=== PATIENT | male | born 1945 | race Caucasian/White ===

== ENCOUNTER → 2019-06-06 | Outpatient (CLI) | payer MEDICARE, OTHER | LOC: M.CT 06:51 | DX: K80.20 Calculus of gallbladder without cholecystitis without obstruction (principal); K86.1 Other chronic pancreatitis; N28.1 Cyst of kidney, acquired; K57.30 Diverticulosis of large intestine without perforation or abscess without bleeding; M47.815 Spondylosis without myelopathy or radiculopathy, thoracolumbar region ==

== ENCOUNTER → 2019-07-06 | Outpatient (CLI) | payer MEDICARE, OTHER | LOC: M.ULTRA 07:28 | DX: K76.0 Fatty (change of) liver, not elsewhere classified (principal); R16.0 Hepatomegaly, not elsewhere classified; N28.1 Cyst of kidney, acquired ==

== ENCOUNTER → 2020-04-04 | Outpatient (CLI) | payer MEDICARE, OTHER | LOC: M.RAD 10:13 | PROVIDERS: ATTEND Internal Medicine | DX: R05 Cough (principal); R06.02 Shortness of breath ==

== ENCOUNTER 2020-05-25 11:56 | Inpatient (IN) | payer MEDICARE, OTHER ==
[~2020-05-25] VITALS: Ht 175.3 cm; Wt 75.3 kg
[2020-05-25 12:00] VITALS: BP 126/67
[2020-05-25] MEDS ORDERED: NORVASC10 MG PO (12:10)
[2020-05-25] MEDS ORDERED: PROAIR HFA8.5 GM INH (12:10)
[2020-05-25] MEDS ORDERED: ASA81BEC PO (12:11)
[2020-05-25] MEDS ORDERED: ZYRTEC 10 MG TA10 MG PO (12:11)
[2020-05-25] MEDS ORDERED: COQ-1030 MG PO (12:11)
[2020-05-25] MEDS ORDERED: VITAMIN D325 MC1 PO (12:11)
[2020-05-25] MEDS ORDERED: ZOCOR80 MG PO (12:12)
[2020-05-25] MEDS ORDERED: HYDROCHLOROTHIA25 M2 PO (12:12)
[2020-05-25] MEDS ORDERED: AVAPRO300 MG PO (12:12)
[2020-05-25] MEDS ORDERED: METFORMIN HCL500 M3 PO (12:12)
[2020-05-25] MEDS ORDERED: NEXIUM 40 MG CA40 M1 PO (12:12)
[2020-05-25 12:54] LABS: ABSOLUTE LYMPHOCYTES 0.7 thou/uL (0.8-5.3); ABSOLUTE MONOCYTES 0.5 thou/uL (0.0-1.2); ABSOLUTE NEUTROPHILS 6.2 thou/uL (1.6-8.1); BASOPHILS 0.2 %; EOSINOPHILS 0.1 %; HEMATOCRIT 42.7 % (42.0-52.0); HEMOGLOBIN 14.5 gm/dL (14.0-18.0); LYMPHOCYTES 10.1 %; MCH 28.8 pg (26.0-34.0); MCHC 33.9 g/dL (28.0-37.0); MONOCYTES 6.6 %; MPV 7.6 fl. (7.2-11.1); NUCLEATED RBCS 0 /100WBC; PLATELET COUNT* 218 thou/uL (150-400); RBC 5.02 mil/uL (4.50-6.00); RDW-CV 14.2 % (10.5-14.5); WBC 7.4 thou/uL (4.0-11.0)
[2020-05-25 13:03] LABS: CALCIUM 8.3 mg/dL (8.5-10.1); CREATININE 1.8 mg/dL (0.6-1.3)
[2020-05-25 13:06] LABS: POTASSIUM 2.9 mmol/L (3.5-5.1)
[2020-05-25 13:12] LABS: ALBUMIN 2.7 g/dL (3.4-5.0); TOTAL BILIRUBIN 0.5 mg/dL (<0.1-1.0); TOTAL PROTEIN 6.4 g/dL (6.4-8.2)
--- NOTE | 2020-05-25 17:06 | EKG ---
[place] [address] ELECTROCARDIOGRAM REPORT Name: DAIN MACIAS Room: [place] [address] ADM IN [facility]#: [id number] Admission: 05/25/20 Attend Phys: Christy Arroyo MD Discharge: Date of : 49 Date of Service: 05/25/20 1208 Report #: [id number] THIS REPORT FOR: //name// [facility] ED Test Date: 2020-05-25 Test Time: 12:08:35 Pat Name: DAIN MACIAS Department: Room: [facility] Gender: M [employer]: : 1945 Requested By: Arash Thompson Order Number: [id number] MD: Mike Cohen Measurements Intervals [place] Rate: 85 P: IN: QRS: -3 QRSD: 100 T: 2 QT: 391 QTc: 465 Interpretive Statements Sinus rhythm artifact No previous ECG available for comparison Electronically Signed On 05-25-2020 17:06:19 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
[2020-05-25 17:33] VITALS: BP 125/70
[2020-05-25 20:00] VITALS: BP 122/70
[2020-05-25 21:00] VITALS: BP 113/58
[2020-05-26 00:18] VITALS: BP 117/68
[2020-05-26 06:02] LABS: HEMATOCRIT 40.7 % (42.0-52.0); HEMOGLOBIN 13.7 gm/dL (14.0-18.0); MCH 28.7 pg (26.0-34.0); MCHC 33.6 g/dL (28.0-37.0); MCV 85.4 fL (80.0-100.0); RBC 4.76 mil/uL (4.50-6.00); RDW-CV 14.1 % (10.5-14.5); WBC 4.8 thou/uL (4.0-11.0)
[2020-05-26 06:24] LABS: CALCIUM 8.3 mg/dL (8.5-10.1); CREATININE 1.4 mg/dL (0.6-1.3)
[2020-05-26 06:30] LABS: POTASSIUM 4.1 mmol/L (3.5-5.1)
[2020-05-26 08:00] VITALS: BP 109/76
[2020-05-26 12:00] VITALS: BP 104/60
--- NOTE | 2020-05-26 13:51 | EKG ---
[place] [address] ELECTROCARDIOGRAM REPORT Name: DAIN MACIAS Room: [address] ADM IN .R.#: [id number] Admission: 05/25/20 Attend Phys: Christy Arroyo MD Discharge: Date of : 49 Date of Service: 05/25/20 1613 Report #: [id number] THIS REPORT FOR: //name// [facility] ED Test Date: 2020-05-25 Test Time: 16:13:02 Pat Name: DAIN MACIAS Department: Room: [facility] Gender: M [employer]: : 1945 Requested By: Arash Thompson Order Number: [id number] MD: Timmy De La Garza Measurements Intervals [place] Rate: 69 P: 29 ME: 186 QRS: 7 QRSD: 104 T: 3 QT: 428 QTc: 459 Interpretive Statements Sinus rhythm Inferior infarct, old Compared to ECG 05/25/2020 12:08:35 Myocardial infarct finding now present Electronically Signed On 05-26-2020 13:51:01 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
[2020-05-26 16:00] VITALS: BP 136/69
[2020-05-26 20:00] VITALS: BP 112/67
[2020-05-27 00:33] VITALS: BP 125/65
[2020-05-27 04:27] VITALS: BP 110/66
[2020-05-27 08:00] VITALS: BP 120/64
[2020-05-27 12:00] VITALS: BP 116/66
[2020-05-27 16:00] VITALS: BP 132/64
[2020-05-27 20:30] VITALS: BP 130/70
[2020-05-28] VITALS: BP 109/55
[2020-05-28 04:58] LABS: ABSOLUTE LYMPHOCYTES 0.8 thou/uL (0.8-5.3); ABSOLUTE MONOCYTES 0.5 thou/uL (0.0-1.2); ABSOLUTE NEUTROPHILS 7.8 thou/uL (1.6-8.1); BASOPHILS 0.1 %; EOSINOPHILS 0.1 %; HEMATOCRIT 39.7 % (42.0-52.0); HEMOGLOBIN 13.2 gm/dL (14.0-18.0); LYMPHOCYTES 9.2 %; MCH 28.7 pg (26.0-34.0); MCHC 33.4 g/dL (28.0-37.0); MCV 85.9 fL (80.0-100.0); MONOCYTES 5.6 %; NUCLEATED RBCS 0 /100WBC; PLATELET COUNT* 283 thou/uL (150-400); RBC 4.62 mil/uL (4.50-6.00); RDW-CV 13.9 % (10.5-14.5); WBC 9.1 thou/uL (4.0-11.0)
[2020-05-28 05:00] VITALS: BP 119/64
[2020-05-28 06:15] LABS: ALBUMIN 2.3 g/dL (3.4-5.0); CALCIUM 8.4 mg/dL (8.5-10.1); CREATININE 1.3 mg/dL (0.6-1.3); POTASSIUM 4.3 mmol/L (3.5-5.1); TOTAL BILIRUBIN 0.3 mg/dL (<0.1-1.0); TOTAL PROTEIN 6.1 g/dL (6.4-8.2)
[2020-05-28 08:00] VITALS: BP 117/72
[2020-05-28] MEDS ORDERED: DOXYCYCLINE 10100 MG PO (09:19)
[2020-05-28] MEDS ORDERED: DEXAMETHASONE1 MG PO (09:19)
[2020-05-28 12:13] VITALS: BP 117/72
== END 2020-05-28 14:25 | disposition home or self-care (01) | DRG 177 ==
LOC: M.ERS 11:56 → M.TBA-ER 13:33 → M.ORTHSURG 13:33
PROVIDERS: Internal Medicine; Physician Assistant; ADMIT Family Medicine; ATTEND Family Medicine
PROC: XW033E5 Introduction of Remdesivir Anti-infective into Peripheral Vein, Percutaneous Approach, New Technology Group 5 (ICD-10-PCS; principal; 2020-05-27)
DX: U07.1 COVID-19 (principal); N17.0 Acute kidney failure with tubular necrosis; J96.01 Acute respiratory failure with hypoxia; J12.82 Pneumonia due to coronavirus disease 2019; E87.1 Hypo-osmolality and hyponatremia; I10 Essential (primary) hypertension; E87.6 Hypokalemia; E86.0 Dehydration; E83.51 Hypocalcemia; E11.65 Type 2 diabetes mellitus with hyperglycemia; T38.0X5A Adverse effect of glucocorticoids and synthetic analogues, initial encounter; Z96.651 Presence of right artificial knee joint; Y92.89 Other specified places as the place of occurrence of the external cause; Z79.84 Long term (current) use of oral hypoglycemic drugs

== ENCOUNTER → 2020-07-02 | Outpatient (CLI) | payer MEDICARE, OTHER ==
[~2020-07-02] MED LIST: ASA81BEC PO; AVAPRO300 MG PO; COQ-1030 MG PO; DEXAMETHASONE1 MG PO; DOXYCYCLINE 10100 MG PO; HYDROCHLOROTHIA25 M2 PO; METFORMIN HCL500 M3 PO; NEXIUM 40 MG CA40 M1 PO; NORVASC10 MG PO; PROAIR HFA8.5 GM INH; VITAMIN D325 MC1 PO; ZOCOR80 MG PO; ZYRTEC 10 MG TA10 MG PO
== END ==
LOC: M.ULTRA 14:19
PROVIDERS: ATTEND Internal Medicine
DX: I82.411 Acute embolism and thrombosis of right femoral vein (principal); J12.89 Other viral pneumonia

== ENCOUNTER → 2021-04-29 | Outpatient (CLI) | payer MEDICARE, OTHER | LOC: M.ULTRA 08:55 | PROVIDERS: ATTEND Internal Medicine | DX: I82.4Y1 Acute embolism and thrombosis of unspecified deep veins of right proximal lower extremity (principal); R60.0 Localized edema; I87.2 Venous insufficiency (chronic) (peripheral) ==